=== PATIENT | male | born 1955 | race Caucasian/White ===

== ENCOUNTER 2019-03-01 11:09 | Emergency (ER) | payer SELFPAY | END 2019-03-01 13:15 | disposition home or self-care (01) | LOC: ERS 11:09 | DX: R53.1 Weakness (principal); I11.0 Hypertensive heart disease with heart failure; I50.9 Heart failure, unspecified; E56.9 Vitamin deficiency, unspecified | CPT/HCPCS: 99281 ==

== ENCOUNTER 2019-03-11 15:00 | Inpatient (IN) | payer SELFPAY ==
--- NOTE | 2019-03-11 15:24 | RAD ---
XR Chest 1 View Portable HISTORY: Cough COMPARISON: 04/01/2011 FINDINGS: The heart size is enlarged. The lungs are well expanded without focal areas of consolidatio n, chepe pulmonary edema pneumothorax or pleural effusions. IMPRESSION: No radiographic evidence of acute cardiopulmonary process.
[2019-03-11 15:36] LABS: Hemoglobin 18.3 g/dL (14.0-18.0); Mean Corpuscular HGB CONC 32.3 g/dL (32.0-36.0); Mean Corpuscular Hemoglobin 31.6 pg (27.0-31.0); Mean Corpuscular Volume 97.8 fL (78.0-98.0); Mean Platelet Volume 9.4 fL (7.4-10.4); Platelet Count 130 thou/uL (130-400); RBC Distribution Width 14.4 % (11.5-14.5); Red Blood Cell (RBC) Count 5.81 mill/uL (4.70-6.10); White Blood Cell (WBC) Count 7.7 thou/uL (4.8-10.8)
[2019-03-11 15:53] LABS: Band 6 % (5-11); Large Platelets SLIGHT; Lymphocytes 17 % (21-51); MDiff Complete? YES; Monocytes 4 % (0-10); Neutrophil 72 % (42-75); Platelet Morphology Comment Appears Adequate; RBC Morphology Normal; Reactive Lymphocytes 1 % (0-10)
[2019-03-11 15:55] LABS: ALT (SGPT) 19 U/L (8-55); AST (SGOT) 32 U/L (5-34); Albumin 2.8 g/dL (3.4-4.8); Alkaline Phosphatase 72 U/L (40-110); Anion Gap 14 mmol/L (10-20); BUN (Urea Nitrogen) 24 mg/dL (8.4-25.7); Bilirubin, Total 2.3 mg/dL (0.2-1.2); Calc. Creatinine Clearance 0 mL/min (70-130); Calcium 8.2 mg/dL (7.8-10.44); Carbon Dioxide 29 mmol/L (23-31); Chloride 103 mmol/L (98-107); Estimated GFR-MDRD 82; Globulin 3.1 g/dL (2.4-3.5); Glucose 111 mg/dL (80-115); Potassium 3.8 mmol/L (3.5-5.1); Protein, Total 5.9 g/dL (5.8-8.1); Sodium 142 mmol/L (136-145)
[2019-03-11] MEDS ORDERED: Furosemide 40 MG/4 ML VIAL ONE (16:06)
[2019-03-11] MEDS ORDERED: hydrALAZINE 20 MG/ML VIAL SLOW IVP PRN (17:54)
[2019-03-11] MEDS: Lisinopril 20 MG TAB PO SCH (20:59)
[2019-03-11] MEDS: Metoprolol Tartrate 100 MG TAB PO SCH (20:59)
[2019-03-11] MEDS: Apixaban 5 MG TAB PO SCH (20:59)
[2019-03-11] MEDS: Furosemide 40 MG/4 ML VIAL IVP SCH (21:00)
[2019-03-11 22:42] LABS: Troponin I 0.024 ng/mL (< 0.028)
--- NOTE | 2019-03-12 00:05 | HP ---
REASON FOR ADMISSION: Shortness of breath, swelling of lower extremities. HISTORY OF PRESENT ILLNESS: This is a 63-year-old male patient, presenting to the emergency room for increased swelling of his bilateral lower extremities. History going back to weeks before his presentation, he has been noticing worsening of his chronic lower extremity swelling that has started in August and the swelling was up to his knees, then progressed to his groin and when he goes to work and stands a lot on his feet, his scrotum becomes very swollen and for the past couple of weeks, he has been coughing and getting more swelling extending to his abdominal area and getting very short of breath with ambulation, unable to lay flat on his back. Yesterday, he had an episode of diarrhea which made his weakness and fatigue worse. His last bowel movement was this morning. The patient's last admission to the hospital was in 2011 for congestive heart failure. As per him, his ejection fraction was 20%. Since then, he follows with his primary care physician and takes medication for his high blood pressure. PAST MEDICAL HISTORY: 1. High blood pressure. 2. Atrial fibrillation. The patient is not on any anticoagulation except for full-dose aspirin. 3. Congestive heart failure, as per patient, EF 20%. 4. Coronary artery disease, but no stents and no history of NM. FAMILY HISTORY: Borderline diabetes. SOCIAL HISTORY: He does not smoke. Does not drink alcohol. REVIEW OF SYSTEMS: All systems reviewed except the above-mentioned, found to be negative. PHYSICAL EXAMINATION: GENERAL: Awake, alert, oriented, does not appear in distress. VITAL SIGNS: His blood pressure is 155/93, heart rate 70, afebrile, pulse ox above 90%. HEENT: Head is nontraumatic, normocephalic. Pupils equal, reactive. Extraocular movements are intact. Nonicteric sclerae. Well injected conjunctivae. Oral mucosa normal. Nasal mucosa normal. NECK: Supple. No adenopathy. No murmur. Thyroid palpable. Trachea is midline. No supraclavicular adenopathy. CARDIAC: S1 and S2, irregular. No murmurs. No gallops. No friction rubs noted. No displacement of PMI. LUNGS: Fine inspiratory crackles bilaterally. ABDOMEN: Bowel sounds are positive. Nontender abdomen. EXTREMITIES: He does have 2+ pitting edema in bilateral lower extremities. Slight edema of his scrotum area. NEUROLOGICAL: Cranial nerves 2 through 12 within normal limit. Normal motor function. Normal sensory function. Normal reflexes. LABORATORY DATA: Blood work shows WBC 7.7, hemoglobin 18.3, platelets of 130. Sodium 142, potassium 3.8, BUN 24, creatinine 0.93. Chest x-ray shows no radiographic evidence of acute cardiopulmonary process. EKG as per my read shows controlled rate, atrial fibrillation. ASSESSMENT AND PLAN: This is a 63-year-old male patient presenting with increased swelling of his bilateral lower extremities, extending to his abdominal area, also shortness of breath, also coughing compatible with anasarca. He does have history of congestive heart failure with an EF of 20%. 1. Cardiac. The patient to be admitted to telemetry and would be on aggressive diuresis with IV Lasix. He is on oral Lasix at home, we will convert it to IV, we will double the dose. He does have history of atrial fibrillation and he is in atrial fibrillation, but he is not on any anticoagulation. We will start him on Eliquis 5 mg b.i.d., we will consult Cardiology, we will do an echocardiogram, we will continue his metoprolol and lisinopril for better blood pressure control; but on the other hand, I will decrease his full dose aspirin to baby aspirin since he will be on Eliquis to prevent increased risk of bleed. We will also have him on hydralazine as needed for high blood pressure. 2. For deep vein thrombosis prophylaxis, he will be on Eliquis. Job ID: [id number]
[2019-03-12 04:53] LABS: #Basophils 0.1 thou/uL (0.0-0.2); #Lymphocytes 2.3 thou/uL (1.20-3.40); #Monocytes 0.5 thou/uL (0.11-0.59); #Neutrophils 3.5 thou/uL (1.40-6.50); %Basophils 1.4 % (0.0-1.0); %Eosinophils 0.6 % (0.0-10.0); %Lymphocytes 35.5 % (21.0-51.0); %Monocytes 8.3 % (0.0-10.0); %Neutrophils 54.1 % (42.0-75.0); Hemoglobin 17.1 g/dL (14.0-18.0); Mean Corpuscular HGB CONC 32.5 g/dL (32.0-36.0); Mean Corpuscular Hemoglobin 31.8 pg (27.0-31.0); Mean Platelet Volume 9.1 fL (7.4-10.4); Platelet Count 123 thou/uL (130-400); RBC Distribution Width 14.2 % (11.5-14.5); Red Blood Cell (RBC) Count 5.39 mill/uL (4.70-6.10); White Blood Cell (WBC) Count 6.4 thou/uL (4.8-10.8)
[2019-03-12] MEDS: Furosemide 40 MG/4 ML VIAL IVP SCH ×2 (05:09→16:09)
[2019-03-12 05:14] VITALS: BMI 32.6
[2019-03-12 05:45] LABS: Anion Gap 11 mmol/L (10-20); BUN (Urea Nitrogen) 21 mg/dL (8.4-25.7); Calc. Creatinine Clearance 143 mL/min (70-130); Calcium 8.1 mg/dL (7.8-10.44); Carbon Dioxide 34 mmol/L (23-31); Chloride 100 mmol/L (98-107); Estimated GFR-MDRD Greater than 90; Glucose 87 mg/dL (80-115); Potassium 3.4 mmol/L (3.5-5.1); Sodium 142 mmol/L (136-145)
[2019-03-12] MEDS: Lisinopril 20 MG TAB PO SCH (08:47)
[2019-03-12] MEDS: Metoprolol Tartrate 100 MG TAB PO SCH (08:47)
[2019-03-12] MEDS: Aspirin Chewable 81 MG TAB PO SCH (08:47)
[2019-03-12] MEDS: Apixaban 5 MG TAB PO SCH (08:48)
[2019-03-12] MEDS ORDERED: Aspirin 325 MG TAB PO SCH (09:00)
[2019-03-12 10:14] LABS: Hemoglobin 18.2 g/dL (14.0-18.0); Platelet Count 135 thou/uL (130-400)
--- NOTE | 2019-03-12 10:27 | PDOC.HOSPP ---
- Subjective Encounter Date: 03/12/19 Encounter Time: 10:23 Subjective: Doing a little better. Reports a hx of initial diagnosis of cardiomyopathy in 2012 here. Had an echo and stress test. Those results are not avail to me on this system right now. He does not recal having a cath at that time and does not recall anyone telling him why he had a cardiomyopathy. He did drink and smoke heavily but quit in 1985. He was told in 2011 that he had afib as well. He was never on anticoagulation. He has had a cough that has been productive of mostly clear, frothy sputum. He has been taking mucinex DM and has on occasion has some discolored sputum. He was prompted to present here because of the discomfort associated with scrotal edema and the new symptom of diarrhea. - Objective Vital Signs & Weight: Vital Signs (12 hours) Temp Pulse Resp BP BP Pulse Ox 03/12/19 08:42 97.5 F L 85 16 160/94 H 94 L 03/12/19 03:31 97.8 F 72 18 144/84 H 93 L 03/12/19 00:00 95 138/67 Weight Weight 240 lb 11.2 oz I&O: 03/11/19 03/12/19 03/13/19 06:59 06:59 06:59 Intake Total 340 Output Total 1750 Balance -1410 Result Diagrams: 03/12/19 09:57 03/12/19 04:07 Hospitalist ROS - Medication Medications: Active Medications Generic Name Dose Route Start Last Admin Trade Name Freq PRN Reason Stop Dose Admin Aspirin 81 mg 03/12/19 09:00 03/12/19 08:47 Aspirin Chewable PO 81 mg DAILY AISHA Administration Furosemide 40 mg 03/11/19 18:00 03/12/19 05:09 Lasix IVP 40 mg Q12H AISHA Administration Lisinopril 20 mg 03/11/19 21:00 03/12/19 08:47 Zestril PO 20 mg BID AISHA Administration Metoprolol Tartrate 100 mg 03/11/19 21:00 03/12/19 08:47 Lopressor PO 100 mg BID AISHA Administration Sodium Chloride 10 ml 03/11/19 21:00 03/12/19 08:48 Flush - Normal Saline IVF 10 ml Q12HR AISHA Administration - Exam General Appearance: NAD, awake alert General - other findings: Obese. Obviously very edematous in general. Neck: supple, symmetric, no JVD, no thyromegaly, no lymphadenopathy, no carotid bruit Heart: no murmur, no gallops, no rubs, irregular Respiratory: no rales (Scattered bilaterally.), no ronchi, normal chest expansion, no tachypnea Gastrointestinal: soft, non-tender, non-distended, normal bowel sounds, no palpable masses, no hepatomegaly, no splenomegaly, no bruit Gastrointestinal - other findings: Pitting edema of the abdomen. Extremities: 2+ LE edema Skin: normal turgor Neurological: no focal deficits Musculoskeletal: normal tone, normal strength, no muscle wasting Psychiatric: normal affect, normal behavior, A&O x 3 Hosp A/P (1) Cardiac volume overload Code(s): E87.79 - OTHER FLUID OVERLOAD Status: Acute (2) Acute on chronic systolic and diastolic heart failure, NYHA class 3 Code(s): I50.43 - ACUTE ON CHRONIC COMBINED SYSTOLIC AND DIASTOLIC HRT FAIL Status: Acute (3) Cardiomyopathy Code(s): I42.9 - CARDIOMYOPATHY, UNSPECIFIED Status: Chronic (4) Bronchitis Code(s): J40 - BRONCHITIS, NOT SPECIFIED ACUTE OR CHRONIC Status: Acute (5) Diarrhea Code(s): R19.7 - DIARRHEA, UNSPECIFIED Status: Acute (6) Obesity (BMI 30.0-34.9) Code(s): E66.9 - OBESITY, UNSPECIFIED Status: Chronic (7) Elevated bilirubin Code(s): R17 - UNSPECIFIED JAUNDICE Status: Acute (8) Atrial fibrillation Code(s): I48.91 - UNSPECIFIED ATRIAL FIBRILLATION Status: Chronic (9) HTN (hypertension) Code(s): I10 - ESSENTIAL (PRIMARY) HYPERTENSION Status: Chronic (10) Polycythemia Code(s): D75.1 - SECONDARY POLYCYTHEMIA Status: Acute (11) Hypokalemia Code(s): E87.6 - HYPOKALEMIA Status: Acute - Plan Volume Overload: Secondary to CHF. Continue diuresis with IV lasix. Seems to be working well now. CHF: Continue diuresis. Reports a hx of EF of 20% from echo from 2011. Repeat echo pending. Cardiology consult pending. Cardiomyopathy: Unclear etiology. Hopefully, the watermelon inspector will be able to pull records and see if he had a cath in 2012. If not, he will likely need one to rule out ischemic etiology. No other readily identifiable etiology. Continue afterload reduction and beta jessee. Bronchitis: Start po ceftin in light of the decompensated CHF. Diarrhea: May have been related to the OTC Guaifenesin DM. Could possibly be related to bowel edema. Does not appear to be an ongoing problem for him. Adding Florastor. Elevated Bili: Likely passive liver congestion from CHF. Continue to monitor. Atrial fibrillation: Rate well controlled. Sounds like it is chronic and was known to be present in 2012. Was started on Eliquis. However, I will hold stop that for now in anticipation of possible cath. Start Lovenox. Continue beta jessee. HTN: Continue Lisinopril, metoprolol. Polycythemia: May be secondary to chronic chf. Hypokalemia: Oral repletion with additional dose later in light of ongoing diuresis. DVT proph: Lovenox given at therapeutic dose for afib. PUD proph: H2 antagonist.
[2019-03-12] MEDS ORDERED: Potassium Chloride 20 MEQ TAB PO SCH ×2 (10:30→16:30)
[2019-03-12] MEDS ORDERED: Spironolactone 25 MG TAB PO SCH (15:30)
[2019-03-12] MEDS ORDERED: Metolazone 5 MG TAB PO SCH (15:30)
[2019-03-12] MEDS: Carvedilol 25 MG TAB PO SCH (16:08)
[2019-03-12] MEDS: Spironolactone 25 MG TAB PO SCH (16:10)
--- NOTE | 2019-03-12 17:15 | CON ---
DATE OF CONSULTATION: HISTORY OF PRESENT ILLNESS: The patient is a 63-year-old gentleman, who presents for evaluation of dyspnea and lower extremity swelling. The patient has a history of a cardiomyopathy. He was seen in 2011 with a severe cardiomyopathy. The patient declined to undergo an invasive evaluation. The patient was placed on medical therapy. He has been followed by his primary physician. The patient presents with increasing lower extremity swelling. He reports being markedly dyspneic. The patient has PND and orthopnea. The patient denies having any chest discomfort. PAST MEDICAL HISTORY: 1. Cardiomyopathy. 2. Atrial fibrillation. 3. Hypertension. PAST SURGICAL HISTORY: None. SOCIAL HISTORY: He is a former smoker. MEDICATIONS: 1. Aspirin 325 daily. 2. Lasix 40 daily. 3. Lisinopril 25 b.i.d. 4. Metoprolol 100 XL b.i.d. FAMILY HISTORY: No strong family history of heart disease. ALLERGIES: NO KNOWN DRUG ALLERGIES. REVIEW OF SYSTEMS: Remarkable only for nasal congestion. PHYSICAL EXAMINATION: GENERAL: Obese gentleman, in no acute distress. VITAL SIGNS: Blood pressure 134/84. NECK: Full. LUNGS: Few crackles in both bases. HEART: Regular rate and rhythm. Normal S1 and S2. 1/6 systolic murmur. ABDOMEN: Distended. EXTREMITIES: Showed severe bilateral edema. LABORATORY RESULTS: Sodium 142, potassium 3.4, chloride 100, bicarbonate 34, BUN 21, and creatinine 0.83. Troponin was 0.024. White blood cell count 6.4, hemoglobin 17.1, hematocrit 52.8, and his platelets are 123. IMAGING DATA: EKG revealed atrial fibrillation with a left anterior fascicular block. IMPRESSION: 1. Congestive heart failure, acute on chronic, systolic. 2. Cardiomyopathy. 3. Severe mitral regurgitation. 4. Hypertension. 5. Obesity. 6. Atrial fibrillation. This gentleman presents with severe congestive heart failure. The patient will be diuresed with IV Lasix. He will also be started on spironolactone. We would highly recommend the patient be placed on Entresto instead of lisinopril. We will discontinue Lisinopril. I recommend the patient undergo a cardiac catheterization, which the patient is now agreeable to proceed. We will also switch to Coreg. The patient's prognosis is guarded. We will follow this patient with you through his hospitalization. Job ID: [id number] [facility]
[2019-03-12] MEDS: Cefuroxime Axetil 250 MG TAB PO SCH (20:59)
[2019-03-12] MEDS: Enoxaparin Sodium 100 MG/ML SYRINGE SC SCH (20:59)
[2019-03-12] MEDS ORDERED: FLU VACC QS2019-20(6MOS UP)/PF 60 MCG/0.5 ML SYRINGE IM ONE (21:00)
[2019-03-12] MEDS ORDERED: Prevnar 13-Val Conj/PF 0.5 ML SYRINGE IM ONE (21:00)
[2019-03-12] MEDS: Saccharomyces boulardii 250 MG CAP PO SCH (21:01)
[2019-03-12] MEDS: Famotidine 20 MG TAB PO SCH (21:01)
[2019-03-13] MEDS: Furosemide 40 MG/4 ML VIAL IVP SCH ×2 (06:02→16:32)
[2019-03-13] MEDS: Carvedilol 25 MG TAB PO SCH ×2 (08:54→16:32)
[2019-03-13] MEDS: Enoxaparin Sodium 100 MG/ML SYRINGE SC SCH ×2 (08:55→20:22)
[2019-03-13] MEDS: Saccharomyces boulardii 250 MG CAP PO SCH ×2 (08:55→20:22)
[2019-03-13] MEDS: Famotidine 20 MG TAB PO SCH ×2 (08:55→20:22)
[2019-03-13] MEDS: Spironolactone 25 MG TAB PO SCH (08:55)
[2019-03-13] MEDS: Aspirin Chewable 81 MG TAB PO SCH (08:55)
[2019-03-13] MEDS: Cefuroxime Axetil 250 MG TAB PO SCH ×2 (08:55→20:22)
[2019-03-13 09:46] LABS: Anion Gap 16 mmol/L (10-20); Carbon Dioxide 40 mmol/L (23-31); Chloride 90 mmol/L (98-107); Potassium 4.2 mmol/L (3.5-5.1); Sodium 142 mmol/L (136-145)
[2019-03-13 09:50] LABS: BUN (Urea Nitrogen) 17 mg/dL (8.4-25.7); Calc. Creatinine Clearance 111 mL/min (70-130); Calcium 9.4 mg/dL (7.8-10.44); Estimated GFR-MDRD 74; Glucose 121 mg/dL (80-115)
[2019-03-13] MEDS ORDERED: Diazepam 5 MG TAB PO SCH (14:15)
[2019-03-13] MEDS ORDERED: Communication Order-Pharmacy FS SCH (14:15)
--- NOTE | 2019-03-13 15:21 | PDOC.HOSPP ---
- Subjective Subjective: Feeling some better. He is voiding well with the lasix. - Objective Vital Signs & Weight: Vital Signs (12 hours) Temp Pulse Resp BP Pulse Ox 03/13/19 11:43 97.7 F 79 18 109/67 94 L 03/13/19 07:52 97.3 F L 85 18 146/89 H 93 L 03/13/19 07:45 95 03/13/19 05:00 97.5 F L 80 20 131/79 92 L Weight Weight 229 lb 9.6 oz I&O: 03/12/19 03/13/19 03/14/19 06:59 06:59 06:59 Intake Total 340 1200 Output Total 0943 2610 Balance -7206 -8945 Result Diagrams: 03/12/19 09:57 03/13/19 09:07 Hospitalist ROS - Medication Medications: Active Medications Generic Name Dose Route Start Last Admin Trade Name Freq PRN Reason Stop Dose Admin Aspirin 81 mg 03/12/19 09:00 03/13/19 08:55 Aspirin Chewable PO 81 mg DAILY AISHA Administration Carvedilol 25 mg 03/12/19 17:00 03/13/19 08:54 Coreg PO 25 mg BID-WM AISHA Administration Cefuroxime Axetil 250 mg 03/12/19 21:00 03/13/19 08:55 Ceftin PO 250 mg Q12HR AISHA Administration Enoxaparin Sodium 100 mg 03/12/19 21:00 03/13/19 08:55 Lovenox SC 03/13/19 23:59 100 mg 0900,2100 AISHA Administration Famotidine 20 mg 03/12/19 21:00 03/13/19 08:55 Pepcid PO 20 mg BID AISHA Administration Furosemide 80 mg 03/12/19 16:00 03/13/19 06:02 Lasix IVP 80 mg 0400,1600 AISHA Administration Saccharomyces Boulardii 250 mg 03/12/19 21:00 03/13/19 08:55 Florastor PO 250 mg BID AISHA Administration Sodium Chloride 10 ml 03/11/19 21:00 03/12/19 21:01 Flush - Normal Saline IVF 10 ml Q12HR AISHA Administration Sodium Chloride 10 ml 03/11/19 18:16 03/13/19 06:02 Flush - Normal Saline IVF 10 ml PRN PRN Administration Saline Flush Spironolactone 25 mg 03/12/19 16:00 03/13/19 08:55 Aldactone PO 25 mg QAM-[facility] Administration - Exam General Appearance: NAD, awake alert Heart: RRR, no murmur, no gallops, no rubs, normal peripheral pulses Respiratory: CTAB, no wheezes, no rales, no ronchi, normal chest expansion, no tachypnea, normal percussion Gastrointestinal: soft, non-tender, non-distended, normal bowel sounds, no palpable masses, no hepatomegaly, no splenomegaly, no bruit Extremities: 2+ LE edema Skin: normal turgor Neurological: no focal deficits Musculoskeletal: normal tone Psychiatric: normal affect, normal behavior, A&O x 3 Hosp A/P (1) Cardiac volume overload Code(s): E87.79 - OTHER FLUID OVERLOAD Status: Acute (2) Acute on chronic systolic and diastolic heart failure, NYHA class 3 Code(s): I50.43 - ACUTE ON CHRONIC COMBINED SYSTOLIC AND DIASTOLIC HRT FAIL Status: Acute (3) Cardiomyopathy Code(s): I42.9 - CARDIOMYOPATHY, UNSPECIFIED Status: Chronic (4) Bronchitis Code(s): J40 - BRONCHITIS, NOT SPECIFIED ACUTE OR CHRONIC Status: Acute (5) Diarrhea Code(s): R19.7 - DIARRHEA, UNSPECIFIED Status: Acute (6) Obesity (BMI 30.0-34.9) Code(s): E66.9 - OBESITY, UNSPECIFIED Status: Chronic (7) Elevated bilirubin Code(s): R17 - UNSPECIFIED JAUNDICE Status: Acute (8) Atrial fibrillation Code(s): I48.91 - UNSPECIFIED ATRIAL FIBRILLATION Status: Chronic (9) HTN (hypertension) Code(s): I10 - ESSENTIAL (PRIMARY) HYPERTENSION Status: Chronic (10) Polycythemia Code(s): D75.1 - SECONDARY POLYCYTHEMIA Status: Acute (11) Hypokalemia Code(s): E87.6 - HYPOKALEMIA Status: Acute - Plan Volume Overload: Secondary to CHF. Continue diuresis with IV lasix. Seems to be working well now. Aldactone added by Cards. CHF: Continue diuresis. Working well. Reports a hx of EF of 20% from echo from 2011. Repeat echo pending. Cardiology following. Stopped ACEI to start Entresto after washout period. Cardiomyopathy: Unclear etiology. apparently did not have cath in 2012. Willing to do that this time. No other readily identifiable etiology. Continue afterload reduction and beta jessee. Bronchitis: Start po ceftin in light of the decompensated CHF. Diarrhea: May have been related to the OTC Guaifenesin DM. Could possibly be related to bowel edema. Does not appear to be an ongoing problem for him. Adding Florastor. Elevated Bili: Likely passive liver congestion from CHF. Continue to monitor. Atrial fibrillation: Rate well controlled. Sounds like it is chronic and was known to be present in 2012. Was started on Eliquis. However, I will hold stop that for now in anticipation of possible cath. Start Lovenox. Continue beta jessee. HTN: Continue metoprolol. ACEI held for washout period to start Entresto. Polycythemia: May be secondary to chronic chf. Hypokalemia: Oral repletion with additional dose later in light of ongoing diuresis. DVT proph: Lovenox given at therapeutic dose for afib. PUD proph: H2 antagonist.
[2019-03-14 04:51] LABS: #Eosinphils 0.1 thou/uL (0.0-0.7); #Monocytes 0.3 thou/uL (0.11-0.59); #Neutrophils 2.8 thou/uL (1.40-6.50); %Basophils 0.5 % (0.0-1.0); %Eosinophils 1.2 % (0.0-10.0); %Lymphocytes 38.7 % (21.0-51.0); %Monocytes 5.5 % (0.0-10.0); %Neutrophils 54.1 % (42.0-75.0); Hemoglobin 17.5 g/dL (14.0-18.0); Mean Corpuscular HGB CONC 32.7 g/dL (32.0-36.0); Mean Corpuscular Hemoglobin 31.3 pg (27.0-31.0); Mean Corpuscular Volume 95.6 fL (78.0-98.0); Mean Platelet Volume 8.7 fL (7.4-10.4); Platelet Count 158 thou/uL (130-400); RBC Distribution Width 13.8 % (11.5-14.5); Red Blood Cell (RBC) Count 5.59 mill/uL (4.70-6.10); White Blood Cell (WBC) Count 5.3 thou/uL (4.8-10.8)
[2019-03-14 05:11] LABS: BUN (Urea Nitrogen) 21 mg/dL (8.4-25.7); Calc. Creatinine Clearance 104 mL/min (70-130); Calcium 9.2 mg/dL (7.8-10.44); Estimated GFR-MDRD 69; Glucose 106 mg/dL (80-115)
[2019-03-14 05:20] LABS: Anion Gap 19 mmol/L (10-20); Carbon Dioxide 33 mmol/L (23-31); Chloride 87 mmol/L (98-107); Potassium 3.7 mmol/L (3.5-5.1); Sodium 135 mmol/L (136-145)
[2019-03-14] MEDS: Famotidine 20 MG TAB PO SCH ×2 (08:03→21:04)
[2019-03-14] MEDS: Saccharomyces boulardii 250 MG CAP PO SCH ×2 (08:03→21:04)
[2019-03-14] MEDS: Cefuroxime Axetil 250 MG TAB PO SCH ×2 (08:03→21:04)
[2019-03-14] MEDS: Carvedilol 25 MG TAB PO SCH ×2 (08:04→18:13)
[2019-03-14] MEDS: Spironolactone 25 MG TAB PO SCH (08:04)
[2019-03-14] MEDS: Aspirin Chewable 81 MG TAB PO SCH (08:04)
[2019-03-14] MEDS ORDERED: Iopamidol 370 76% 100 ML VIAL ONE (09:04)
[2019-03-14] MEDS ORDERED: Heparin (Artline) 1,000 ML ONE (09:36)
[2019-03-14] MEDS ORDERED: Nitroglycerin 0.4 MG TAB (25 Tab Bottle) SL PRN (10:42)
[2019-03-14] MEDS ORDERED: Sodium Chloride 0.9% 200 ML IV PRN (10:42)
[2019-03-14] MEDS ORDERED: Acetaminophen/Codeine 30-300mg Tablet PO PRN ×2 (10:42)
--- NOTE | 2019-03-14 15:32 | PDOC.HOSPP ---
- Subjective Subjective: Doing well overall. He tolerated the cath well. Knows the results. - Objective Vital Signs & Weight: Vital Signs (12 hours) Temp Pulse Resp BP Pulse Ox 03/14/19 12:00 97.7 F 88 16 125/76 87 L 03/14/19 11:05 97.8 F 101 H 16 125/85 94 L 03/14/19 08:00 97.2 F L 88 18 119/72 93 L 03/14/19 07:43 95 03/14/19 04:30 98.1 F 75 22 H 122/76 95 Weight Weight 219 lb 8 oz I&O: 03/13/19 03/14/19 03/15/19 06:59 06:59 06:59 Intake Total 1200 1600 Output Total 7215 5987 Balance -0721 -6454 Result Diagrams: 03/14/19 04:34 03/14/19 04:34 Hospitalist ROS - Medication Medications: Active Medications Generic Name Dose Route Start Last Admin Trade Name Freq PRN Reason Stop Dose Admin Aspirin 81 mg 03/12/19 09:00 03/14/19 08:04 Aspirin Chewable PO 81 mg DAILY AISHA Administration Carvedilol 25 mg 03/12/19 17:00 03/14/19 08:04 Coreg PO 25 mg BID-WM AISHA Administration Cefuroxime Axetil 250 mg 03/12/19 21:00 03/14/19 08:03 Ceftin PO 250 mg Q12HR AISHA Administration Famotidine 20 mg 03/12/19 21:00 03/14/19 08:03 Pepcid PO 20 mg BID AISHA Administration Furosemide 80 mg 03/12/19 16:00 03/13/19 16:32 Lasix IVP 80 mg 0400,1600 AISHA Administration Saccharomyces Boulardii 250 mg 03/12/19 21:00 03/14/19 08:03 Florastor PO 250 mg BID AISHA Administration Sodium Chloride 10 ml 03/11/19 21:00 03/14/19 08:04 Flush - Normal Saline IVF 10 ml Q12HR AISHA Administration Sodium Chloride 10 ml 03/11/19 18:16 03/13/19 06:02 Flush - Normal Saline IVF 10 ml PRN PRN Administration Saline Flush Spironolactone 25 mg 03/12/19 16:00 03/14/19 08:04 Aldactone PO 25 mg QAM-WM AISHA Administration - Exam General Appearance: NAD, awake alert Neck: supple, symmetric, no JVD, no thyromegaly, no lymphadenopathy, no carotid bruit Heart: RRR, no murmur, no gallops, no rubs, normal peripheral pulses Respiratory: CTAB, no wheezes, no rales, no ronchi, normal chest expansion, no tachypnea, normal percussion Gastrointestinal: soft, non-tender, non-distended, normal bowel sounds, no palpable masses, no hepatomegaly, no splenomegaly, no bruit Extremities: 1+ LE edema Neurological: no focal deficits Musculoskeletal: normal tone Psychiatric: normal affect, normal behavior, A&O x 3 Hosp A/P (1) Cardiac volume overload Code(s): E87.79 - OTHER FLUID OVERLOAD Status: Acute (2) Acute on chronic systolic and diastolic heart failure, NYHA class 3 Code(s): I50.43 - ACUTE ON CHRONIC COMBINED SYSTOLIC AND DIASTOLIC HRT FAIL Status: Acute (3) Cardiomyopathy Code(s): I42.9 - CARDIOMYOPATHY, UNSPECIFIED Status: Chronic (4) Bronchitis Code(s): J40 - BRONCHITIS, NOT SPECIFIED ACUTE OR CHRONIC Status: Acute (5) Diarrhea Code(s): R19.7 - DIARRHEA, UNSPECIFIED Status: Acute (6) Obesity (BMI 30.0-34.9) Code(s): E66.9 - OBESITY, UNSPECIFIED Status: Chronic (7) Elevated bilirubin Code(s): R17 - UNSPECIFIED JAUNDICE Status: Acute (8) Atrial fibrillation Code(s): I48.91 - UNSPECIFIED ATRIAL FIBRILLATION Status: Chronic (9) HTN (hypertension) Code(s): I10 - ESSENTIAL (PRIMARY) HYPERTENSION Status: Chronic (10) Polycythemia Code(s): D75.1 - SECONDARY POLYCYTHEMIA Status: Acute (11) Hypokalemia Code(s): E87.6 - HYPOKALEMIA Status: Acute - Plan Volume Overload: Secondary to CHF. Continue diuresis with IV lasix. Seems to be working well now. Aldactone added by Cards. CHF: Continue diuresis. Working well. Reports a hx of EF of 20% from echo from 2011. Repeat echo pending. Cardiology following. Stopped ACEI to start Entresto after washout period. Cardiomyopathy: Unclear etiology. apparently did not have cath in 2012. Willing to do that this time. No other readily identifiable etiology. Continue afterload reduction and beta jessee. Cath negative for significant ischemic disease. Medical management recommended. Bronchitis: Start po ceftin in light of the decompensated CHF. Continues to have a little cough. Diarrhea: May have been related to the OTC Guaifenesin DM. Could possibly be related to bowel edema. Does not appear to be an ongoing problem for him. Adding Florastor. Improving. Elevated Bili: Likely passive liver congestion from CHF. Continue to monitor. Atrial fibrillation: Rate well controlled. Sounds like it is chronic and was known to be present in 2012. Was started on Eliquis. However, I will hold stop that for now in anticipation of possible cath. Start Lovenox. Continue beta jessee. May be able to transition to NOAC. HTN: Continue metoprolol. ACEI held for washout period to start Entresto. Polycythemia: May be secondary to chronic chf. Hypokalemia: Oral repletion with additional dose later in light of ongoing diuresis. DVT proph: Lovenox given at therapeutic dose for afib. PUD proph: H2 antagonist.
[2019-03-14] MEDS: Furosemide 40 MG/4 ML VIAL IVP SCH (18:13)
[2019-03-15] MEDS: Furosemide 40 MG/4 ML VIAL IVP SCH ×2 (02:38→04:23)
--- NOTE | 2019-03-15 03:10 | CON ---
DATE OF CONSULTATION: 03/14/2019 HISTORY OF PRESENT ILLNESS: I am seeing Mr. 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 His problems are: 1. Acute on chronic systolic congestive heart failure with nonischemic cardiomyopathy. a. Reduced LVEF on 2D echocardiogram is 15%-20% with moderate RV enlargement, mild right atrial enlargement, severe mitral regurgitation, mild AI and TR, large and heavy size. b. Left heart catheterization on 03/14/2019 demonstrates nonocclusive mild coronary artery disease only, LVEF reduced in 15%. 2. Nonsustained wide-complex tachycardia, likely ventricular tachycardia. 3. Hypertension. 4. Chronic atrial fibrillation. ALLERGIES: NONE NOTED. MEDICATIONS: At home included, 1. Vitamin D3. 2. Vitamin C. 3. Potassium gluconate. 4. Aspirin. 5. Mucinex. 6. Zinc. 7. Metoprolol tartrate 100 mg twice a day. 8. Lisinopril p.o. twice a day. 9. Furosemide. SUBJECTIVE: Mr. Cleveland is here with heart failure exacerbation. He was evaluated by Dr. Ng with echocardiogram and left heart catheterization with the above findings. He is now feeling better with diuresis. Blood pressure is still borderline. He does not pass out. He does not feel more palpitations. No fever, chills, or cough. Rest of 12-point system otherwise unremarkable. PAST MEDICAL HISTORY: As above including hypertension, chronic atrial fibrillation, not previous anticoagulation. CHF, he does mentioned reduced LVEF back in 2011, but has not been seen by mid level net developer in the interim. SOCIAL HISTORY: The patient denies smoking, EtOH, or drug abuse. FAMILY HISTORY: Significant for borderline diabetes. OBJECTIVE DATA: VITAL SIGNS: Blood pressure is 108/72, heart rate 99-130, respirations 16, and temperature 97.8 degrees Fahrenheit. GENERAL: Alert and oriented man, in no apparent distress. NECK: Supple. Jugular veins not distended. CHEST: Coarse without crackles. HEART: Sounds are regular to rate and rhythm. No murmur or gallop. ABDOMEN: Benign. Bowel sounds positive. EXTREMITIES: Lower extremities without edema, clubbing, or cyanosis. DATABASE: EKG is reviewed, revealing atrial fibrillation rate of 82 beats per minute, also ST-T changes. Subsequent telemetry strips revealed continued atrial fibrillation with a controlled ventricular rate, nonsustained ventricular tachycardia was noted. LABORATORY DATA: White cell count of 5.3, hemoglobin 17.5, platelet count is 158. Sodium 135, potassium 3.7, BUN is 21, creatinine 1.09. Troponin was 0.02 and 0.024. BNP is 1519 on admission. Chest x-ray was unremarkable. ASSESSMENT AND PLAN: Mr. Cleveland is a 63-year-old man with remote history of cardiomyopathy of which records are not available to me. On the other hand, now admitted with heart failure exacerbation with elevated BNP in the setting of hypertension. He is feeling better now with blood pressure better controlled and also diuresed. He underwent cardiac investigations above by Dr. Ng with findings of severely reduced LVEF and a nonischemic cardiomyopathy. He also had nonsustained ventricular tachycardia. We discussed the risk of future ventricular arrhythmias with him. He understands the potential benefit from prophylactic ICD device. At this point, he is hesitant and he will receive further medical optimization with Dr. Ng and LifeVest is a consideration for him. I am happy to see him back in after 3 months of intensified medical therapy, possibly including Entresto and reconsider him for ICD implant at that time. Thank you again for letting me to participate in the care of this patient. Job ID: [id number]
[2019-03-15 05:06] LABS: Anion Gap 14 mmol/L (10-20); BUN (Urea Nitrogen) 21 mg/dL (8.4-25.7); Calc. Creatinine Clearance 89 mL/min (70-130); Calcium 9.1 mg/dL (7.8-10.44); Carbon Dioxide 37 mmol/L (23-31); Chloride 87 mmol/L (98-107); Estimated GFR-MDRD 61; Glucose 118 mg/dL (80-115); Sodium 134 mmol/L (136-145)
[2019-03-15] MEDS ORDERED: Carvedilol 25 MG TAB PO SCH ×3 (08:45→17:00)
[2019-03-15] MEDS ORDERED: Spironolactone 25 MG TAB PO SCH (09:00)
[2019-03-15] MEDS ORDERED: Carvedilol 6.25 MG TAB PO SCH (09:15)
[2019-03-15] MEDS: Apixaban 5 MG TAB PO SCH ×2 (09:22→19:47)
[2019-03-15] MEDS: Aspirin Chewable 81 MG TAB PO SCH (09:22)
[2019-03-15] MEDS: Cefuroxime Axetil 250 MG TAB PO SCH ×2 (09:22→19:47)
[2019-03-15] MEDS: Famotidine 20 MG TAB PO SCH ×2 (09:23→19:47)
[2019-03-15] MEDS: Furosemide 20 MG TAB PO SCH ×2 (09:23→15:22)
[2019-03-15] MEDS: Saccharomyces boulardii 250 MG CAP PO SCH ×2 (09:23→19:47)
[2019-03-15] MEDS: Spironolactone 25 MG TAB PO SCH (09:29)
[2019-03-15] MEDS: Carvedilol 25 MG TAB PO SCH (09:30)
--- NOTE | 2019-03-15 10:23 | PDOC.HOSPP ---
- Subjective Subjective: Patient reports that he had one episode of dizziness this morning. Breathing well on room air in bed, but had some shortness of breath when walking to the bathroom. Reports that diarrhea has persisted. He had several episodes yesterday. - Objective Vital Signs & Weight: Vital Signs (12 hours) Temp Pulse Resp BP Pulse Ox 03/15/19 07:35 98.1 F 85 20 98/61 97 03/15/19 03:13 98.2 F 84 18 115/66 93 L 03/14/19 23:58 100/57 L Weight Weight 204 lb I&O: 03/14/19 03/15/19 03/16/19 06:59 06:59 06:59 Intake Total 1600 1060 Output Total 0352 5465 Balance -4745 -0577 Result Diagrams: 03/14/19 04:34 03/15/19 04:23 Hospitalist ROS - Medication Medications: Active Medications Generic Name Dose Route Start Last Admin Trade Name Freq PRN Reason Stop Dose Admin Apixaban 5 mg 03/15/19 09:00 03/15/19 09:22 Eliquis PO 5 mg BID IASHA Administration Aspirin 81 mg 03/12/19 09:00 03/15/19 09:22 Aspirin Chewable PO 81 mg DAILY AISHA Administration Cefuroxime Axetil 250 mg 03/12/19 21:00 03/15/19 09:22 Ceftin PO 250 mg Q12HR AISHA Administration Famotidine 20 mg 03/12/19 21:00 03/15/19 09:23 Pepcid PO 20 mg BID AISHA Administration Furosemide 40 mg 03/15/19 09:00 03/15/19 09:23 Lasix PO 40 mg 0900,1400 AISHA Administration Saccharomyces Boulardii 250 mg 03/12/19 21:00 03/15/19 09:23 Florastor PO 250 mg BID AISHA Administration Sacubitril/Valsartan 1 tab 03/14/19 21:00 03/15/19 09:23 Entresto 24 Mg-26 Mg Tablet PO 1 tab BID AISHA Administration Sodium Chloride 10 ml 03/11/19 21:00 03/15/19 09:23 Flush - Normal Saline IVF 10 ml Q12HR AISHA Administration Sodium Chloride 10 ml 03/11/19 18:16 03/13/19 06:02 Flush - Normal Saline IVF 10 ml PRN PRN Administration Saline Flush Spironolactone 50 mg 03/15/19 09:00 03/15/19 09:24 Aldactone PO 03/15/19 11:00 50 mg NOW AISHA Administration - Exam General Appearance: NAD, awake alert ENT: normocephalic atraumatic, no oropharyngeal lesions, moist mucosa Heart: RRR, no murmur, no gallops, no rubs Respiratory: CTAB, no wheezes, no rales, no ronchi, normal chest expansion, no tachypnea Gastrointestinal: soft, non-tender, non-distended Extremities: 1+ LE edema Hosp A/P (1) Cardiac volume overload Code(s): E87.79 - OTHER FLUID OVERLOAD Status: Acute (2) Acute on chronic systolic and diastolic heart failure, NYHA class 3 Code(s): I50.43 - ACUTE ON CHRONIC COMBINED SYSTOLIC AND DIASTOLIC HRT FAIL Status: Acute (3) Cardiomyopathy Code(s): I42.9 - CARDIOMYOPATHY, UNSPECIFIED Status: Chronic (4) Bronchitis Code(s): J40 - BRONCHITIS, NOT SPECIFIED ACUTE OR CHRONIC Status: Acute (5) Diarrhea Code(s): R19.7 - DIARRHEA, UNSPECIFIED Status: Acute (6) Obesity (BMI 30.0-34.9) Code(s): E66.9 - OBESITY, UNSPECIFIED Status: Chronic (7) Elevated bilirubin Code(s): R17 - UNSPECIFIED JAUNDICE Status: Acute (8) Atrial fibrillation Code(s): I48.91 - UNSPECIFIED ATRIAL FIBRILLATION Status: Chronic (9) HTN (hypertension) Code(s): I10 - ESSENTIAL (PRIMARY) HYPERTENSION Status: Chronic (10) Polycythemia Code(s): D75.1 - SECONDARY POLYCYTHEMIA Status: Acute (11) Hypokalemia Code(s): E87.6 - HYPOKALEMIA Status: Acute - Plan Volume Overload: Secondary to CHF. Continue diuresis with IV lasix. Seems to be working well now. Aldactone added by Cards. CHF: Continue diuresis. Working well. Reports a hx of EF of 20% from echo from 2011. Repeat echo pending. Cardiology following. Started on Entresto 03/14. EP consulted. Pt decided to wait on AICD and attempt max medical management for 3 months. Pt declined LifeVest at this time. Will follow with Berenice. Cardiomyopathy: Unclear etiology. apparently did not have cath in 2012. Willing to do that this time. No other readily identifiable etiology. Continue afterload reduction and beta jessee. Cath negative for significant ischemic disease. Medical management recommended. Bronchitis: Start po ceftin in light of the decompensated CHF. Continues to have a little cough when supine. Diarrhea: May have been related to the OTC Guaifenesin DM. Could possibly be related to bowel edema. Continue Florastor. Persistent, will continue to monitor. Elevated Bili: Likely passive liver congestion from CHF. Continue to monitor. Atrial fibrillation: Rate well controlled. Sounds like it is chronic and was known to be present in 2012. On Eliquis. Cath yesterday revealed no significant blockages. Continue beta jessee. HTN: Continue metoprolol. On Entresto. Polycythemia: May be secondary to chronic chf. Hypokalemia: Resolved. DVT proph: Lovenox given at therapeutic dose for afib. PUD proph: H2 antagonist.
[2019-03-15 10:36] LABS: Hemoglobin 18.4 g/dL (14.0-18.0); Platelet Count 173 thou/uL (130-400)
[2019-03-15] MEDS ORDERED: Furosemide 40 MG/4 ML VIAL IVP SCH (14:00)
[2019-03-15] MEDS ORDERED: Sodium Chloride 0.9% 250 ML IV SCH (16:15)
[2019-03-15] MEDS: Carvedilol 6.25 MG TAB PO SCH (17:41)
[2019-03-15] MEDS: Atorvastatin Calcium 40 MG TAB PO SCH (19:47)
[2019-03-16 06:50] LABS: BUN (Urea Nitrogen) 25 mg/dL (8.4-25.7); Calc. Creatinine Clearance 76 mL/min (70-130); Calcium 9.3 mg/dL (7.8-10.44); Estimated GFR-MDRD 56; Glucose 107 mg/dL (80-115)
[2019-03-16 06:59] LABS: Anion Gap 19 mmol/L (10-20); Carbon Dioxide 32 mmol/L (23-31); Chloride 86 mmol/L (98-107); Potassium 3.2 mmol/L (3.5-5.1); Sodium 134 mmol/L (136-145)
[2019-03-16] MEDS ORDERED: Potassium Chloride 20 MEQ TAB PO SCH (08:00)
[2019-03-16] MEDS: Spironolactone 25 MG TAB PO SCH (08:51)
[2019-03-16] MEDS: Carvedilol 6.25 MG TAB PO SCH ×2 (08:51→17:16)
[2019-03-16] MEDS: Cefuroxime Axetil 250 MG TAB PO SCH ×2 (08:52→21:24)
[2019-03-16] MEDS: Famotidine 20 MG TAB PO SCH ×2 (08:52→21:25)
[2019-03-16] MEDS: Saccharomyces boulardii 250 MG CAP PO SCH ×2 (08:52→21:24)
[2019-03-16] MEDS: Furosemide 20 MG TAB PO SCH ×2 (08:57→13:34)
[2019-03-16] MEDS: Apixaban 5 MG TAB PO SCH ×2 (08:57→21:24)
[2019-03-16] MEDS: Aspirin Chewable 81 MG TAB PO SCH (08:57)
[2019-03-16] MEDS: Ondansetron PF 4 MG/2 ML Vial IVP PRN (09:03)
--- NOTE | 2019-03-16 09:39 | PDOC.HOSPP ---
- Subjective Subjective: Pt reports some nausea and dizziness this morning. But otherwise states that he is feeling better. He is eating and not having any difficulty currently. He reports that his diarrhea has resolved. - Objective Vital Signs & Weight: Vital Signs (12 hours) Temp Pulse Resp BP Pulse Ox 03/16/19 08:48 97.8 F 85 17 145/81 H 96 03/16/19 07:29 92 L 03/16/19 03:34 98.8 F 77 18 123/66 92 L 03/15/19 23:42 80 18 113/65 Weight Weight 201 lb I&O: 03/15/19 03/16/19 03/17/19 06:59 06:59 06:59 Intake Total 1060 1630 Output Total 3620 2180 Balance -2560 -550 Result Diagrams: 03/15/19 10:27 03/16/19 06:04 Hospitalist ROS - Medication Medications: Active Medications Generic Name Dose Route Start Last Admin Trade Name Freq PRN Reason Stop Dose Admin Apixaban 5 mg 03/15/19 09:00 03/16/19 08:57 Eliquis PO 5 mg BID AISHA Administration Aspirin 81 mg 03/12/19 09:00 03/16/19 08:57 Aspirin Chewable PO 81 mg DAILY AISHA Administration Atorvastatin Calcium 40 mg 03/15/19 21:00 03/15/19 19:47 Lipitor PO 40 mg HS AISHA Administration Carvedilol 6.25 mg 03/15/19 17:00 03/16/19 08:51 Coreg PO 6.25 mg BID-WM AISHA Administration Cefuroxime Axetil 250 mg 03/12/19 21:00 03/16/19 08:52 Ceftin PO 250 mg Q12HR AISHA Administration Famotidine 20 mg 03/12/19 21:00 03/16/19 08:52 Pepcid PO 20 mg BID AISHA Administration Furosemide 40 mg 03/15/19 09:00 03/16/19 08:57 Lasix PO 40 mg 0900,1400 AISHA Administration Ondansetron HCl 4 mg 03/16/19 08:51 03/16/19 09:03 Zofran IVP 4 mg Q6H PRN Administration Nausea/Vomiting Potassium Chloride 40 meq 03/16/19 08:00 03/16/19 08:51 K-Dur PO 03/16/19 10:00 40 meq NOW AISHA Administration Saccharomyces Boulardii 250 mg 03/12/19 21:00 03/16/19 08:52 Florastor PO 250 mg BID AISHA Administration Sacubitril/Valsartan 1 tab 03/14/19 21:00 03/16/19 08:57 Entresto 24 Mg-26 Mg Tablet PO 1 tab BID AISHA Administration Sodium Chloride 10 ml 03/11/19 21:00 03/16/19 08:58 Flush - Normal Saline IVF 10 ml Q12HR AISHA Administration Sodium Chloride 10 ml 03/11/19 18:16 03/13/19 06:02 Flush - Normal Saline IVF 10 ml PRN PRN Administration Saline Flush Spironolactone 50 mg 03/16/19 08:00 03/16/19 08:51 Aldactone PO 50 mg QAM-WM AISHA Administration - Exam General Appearance: NAD, awake alert Heart: RRR, no murmur, no gallops, no rubs Respiratory: CTAB, no wheezes, no rales, no ronchi, normal chest expansion, no tachypnea Extremities: no edema Skin: tenting Hosp A/P (1) Cardiac volume overload Code(s): E87.79 - OTHER FLUID OVERLOAD Status: Acute (2) Acute on chronic systolic and diastolic heart failure, NYHA class 3 Code(s): I50.43 - ACUTE ON CHRONIC COMBINED SYSTOLIC AND DIASTOLIC HRT FAIL Status: Acute (3) Cardiomyopathy Code(s): I42.9 - CARDIOMYOPATHY, UNSPECIFIED Status: Chronic (4) Bronchitis Code(s): J40 - BRONCHITIS, NOT SPECIFIED ACUTE OR CHRONIC Status: Acute (5) Diarrhea Code(s): R19.7 - DIARRHEA, UNSPECIFIED Status: Acute (6) Obesity (BMI 30.0-34.9) Code(s): E66.9 - OBESITY, UNSPECIFIED Status: Chronic (7) Elevated bilirubin Code(s): R17 - UNSPECIFIED JAUNDICE Status: Acute (8) Atrial fibrillation Code(s): I48.91 - UNSPECIFIED ATRIAL FIBRILLATION Status: Chronic (9) HTN (hypertension) Code(s): I10 - ESSENTIAL (PRIMARY) HYPERTENSION Status: Chronic (10) Polycythemia Code(s): D75.1 - SECONDARY POLYCYTHEMIA Status: Acute (11) Hypokalemia Code(s): E87.6 - HYPOKALEMIA Status: Acute - Plan Volume Overload: Secondary to CHF. Continue diuresis with PO Lasix and spironolactone. Seems to be working well now. CHF: Started spironolactone. Will decrease Lasix to 40 mg PO QD. Reports a hx of EF of 20% from echo from 2011. Started on Entresto 03/14. EP consulted. Pt decided to wait on AICD and attempt max medical management for 3 months. Pt declined LifeVest at this time. Will follow with Berenice. Cardiomyopathy: Non-ischemic. Continue afterload reduction and beta jessee. Cath negative for significant ischemic disease. Bronchitis: Start po ceftin in light of the decompensated CHF. Continues to have some cough when supine, but reports it is improved. Diarrhea: Improved, but will continue to monitor. Continue Florastor. Elevated Bili: Likely passive liver congestion from CHF. Continue to monitor. Atrial fibrillation: Rate well controlled. Sounds like it is chronic and was known to be present in 2012. On Eliquis. Cath revealed no significant blockages. Continue beta jessee. HTN: Continue metoprolol. On Entresto. Polycythemia: May be secondary to chronic chf. Hypokalemia: Replaced orally. DVT proph: On Eliquis. PUD proph: H2 antagonist.
[2019-03-16] MEDS ORDERED: Promethazine HCl 12.5 MG in Sodium Chloride 0.9% 50 ML IVPB PRN (10:01)
[2019-03-16] MEDS ORDERED: Carvedilol 3.125 MG TAB PO SCH (17:15)
[2019-03-16] MEDS: Atorvastatin Calcium 40 MG TAB PO SCH (21:24)
[2019-03-17 04:40] LABS: BUN (Urea Nitrogen) 31 mg/dL (8.4-25.7); Calc. Creatinine Clearance 64 mL/min (70-130); Estimated GFR-MDRD 46; Glucose 104 mg/dL (80-115)
[2019-03-17 04:49] LABS: Anion Gap 15 mmol/L (10-20); Carbon Dioxide 38 mmol/L (23-31); Chloride 88 mmol/L (98-107); Sodium 137 mmol/L (136-145)
[2019-03-17] MEDS ORDERED: Digoxin 0.5 MG/2 ML AMP SLOW IVP SCH ×2 (08:45→11:00)
[2019-03-17] MEDS: Famotidine 20 MG TAB PO SCH ×2 (09:12→21:11)
[2019-03-17] MEDS: Cefuroxime Axetil 250 MG TAB PO SCH ×2 (09:12→21:12)
[2019-03-17] MEDS: Saccharomyces boulardii 250 MG CAP PO SCH ×2 (09:12→21:11)
[2019-03-17] MEDS: Aspirin Chewable 81 MG TAB PO SCH (09:13)
[2019-03-17] MEDS: Apixaban 5 MG TAB PO SCH (09:13)
[2019-03-17] MEDS: Spironolactone 25 MG TAB PO SCH (09:30)
[2019-03-17] MEDS: Carvedilol 3.125 MG TAB PO SCH ×2 (09:30→16:26)
[2019-03-17] MEDS: Digoxin 0.125 MG TAB PO SCH (09:31)
--- NOTE | 2019-03-17 10:56 | PDOC.HOSPP ---
- Subjective Subjective: Pt reports that he is feeling better today. Denies nausea this morning. He thinks the pepcid was the cause of this and since discontinuation states he is better. He reports some dizziness today but states that it is improved. - Objective Vital Signs & Weight: Vital Signs (12 hours) Temp Pulse Resp BP BP Pulse Ox 03/17/19 09:31 103 H 03/17/19 09:15 106 H 03/17/19 08:33 94 L 03/17/19 08:22 97.6 F 107 H 18 108/63 94 L 03/17/19 04:30 100/52 L 03/17/19 04:23 97.6 F 84 16 96 03/17/19 00:35 98.0 F 88 18 90/40 L 96 Weight Weight 202 lb I&O: 03/16/19 03/17/19 03/18/19 06:59 06:59 06:59 Intake Total 1630 930 Output Total 2180 1425 Balance -550 -495 Result Diagrams: 03/15/19 10:27 03/17/19 03:43 Hospitalist ROS - Medication Medications: Active Medications Generic Name Dose Route Start Last Admin Trade Name Freq PRN Reason Stop Dose Admin Apixaban 5 mg 03/15/19 09:00 03/17/19 09:13 Eliquis PO 5 mg BID AISHA Administration Aspirin 81 mg 03/12/19 09:00 03/17/19 09:13 Aspirin Chewable PO 81 mg DAILY AISHA Administration Atorvastatin Calcium 40 mg 03/15/19 21:00 03/16/19 21:24 Lipitor PO 40 mg HS AISHA Administration Carvedilol 3.125 mg 03/17/19 08:00 03/17/19 09:30 Coreg PO 3.125 mg BID-WM AISHA Administration Cefuroxime Axetil 250 mg 03/12/19 21:00 03/17/19 09:12 Ceftin PO 250 mg Q12HR AISHA Administration Digoxin 0.125 mg 03/17/19 09:00 03/17/19 09:31 Lanoxin PO 03/18/19 11:00 0.125 mg QAM AISHA Administration Famotidine 20 mg 03/12/19 21:00 03/17/19 09:12 Pepcid PO 20 mg BID AISHA Administration Promethazine HCl 12.5 mg/ 50.5 mls @ 202 mls/hr 03/16/19 10:01 03/16/19 10:45 Sodium Chloride IVPB 50.5 mls Q6H PRN Administration Nausea/Vomiting Ondansetron HCl 4 mg 03/16/19 08:51 03/16/19 09:03 Zofran IVP 4 mg Q6H PRN Administration Nausea/Vomiting Saccharomyces Estefanydii 250 mg 03/12/19 21:00 03/17/19 09:12 Florastor PO 250 mg BID AISHA Administration Sacubitril/Valsartan 1 tab 03/14/19 21:00 03/16/19 21:25 Entresto 24 Mg-26 Mg Tablet PO Not Given BID AISHA Sodium Chloride 10 ml 03/11/19 21:00 03/17/19 09:32 Flush - Normal Saline IVF 10 ml Q12HR AISHA Administration Sodium Chloride 10 ml 03/11/19 18:16 03/13/19 06:02 Flush - Normal Saline IVF 10 ml PRN PRN Administration Saline Flush Spironolactone 50 mg 03/16/19 08:00 03/17/19 09:30 Aldactone PO 50 mg QAM-WM AISHA Administration - Exam General Appearance: NAD, awake alert Heart: no murmur, no gallops, irregular Respiratory: CTAB, no wheezes, no rales, no ronchi, normal chest expansion, no tachypnea Gastrointestinal: soft, non-tender, non-distended Extremities: no edema Hosp A/P (1) Cardiac volume overload Code(s): E87.79 - OTHER FLUID OVERLOAD Status: Acute (2) Acute on chronic systolic and diastolic heart failure, NYHA class 3 Code(s): I50.43 - ACUTE ON CHRONIC COMBINED SYSTOLIC AND DIASTOLIC HRT FAIL Status: Acute (3) Cardiomyopathy Code(s): I42.9 - CARDIOMYOPATHY, UNSPECIFIED Status: Chronic (4) Bronchitis Code(s): J40 - BRONCHITIS, NOT SPECIFIED ACUTE OR CHRONIC Status: Acute (5) Diarrhea Code(s): R19.7 - DIARRHEA, UNSPECIFIED Status: Acute (6) Obesity (BMI 30.0-34.9) Code(s): E66.9 - OBESITY, UNSPECIFIED Status: Chronic (7) Elevated bilirubin Code(s): R17 - UNSPECIFIED JAUNDICE Status: Acute (8) Atrial fibrillation Code(s): I48.91 - UNSPECIFIED ATRIAL FIBRILLATION Status: Chronic (9) HTN (hypertension) Code(s): I10 - ESSENTIAL (PRIMARY) HYPERTENSION Status: Chronic (10) Polycythemia Code(s): D75.1 - SECONDARY POLYCYTHEMIA Status: Acute (11) Hypokalemia Code(s): E87.6 - HYPOKALEMIA Status: Acute - Plan CHF: On spironolactone and Entresto. Discontinued Lasix today due to elevated creatinine. Will check creatinine again tomorrow morning. Reports a hx of EF of 20% from echo from 2011. EP consulted. Pt decided to wait on AICD and attempt max medical management for 3 months. Pt declined LifeVest at this time. Will follow with Berenice. Hypotension: Improved today after receiving IVF yesterday. Will continue to monitor today. Cardiomyopathy: Non-ischemic. Continue afterload reduction and beta jessee. Cath negative for significant ischemic disease. Bronchitis: Start po ceftin in light of the decompensated CHF. Continues to have some cough when supine, but stable. Diarrhea: Resolved. Continue Florastor. Elevated Bili: Likely passive liver congestion from CHF. Continue to monitor. Atrial fibrillation: Rate well controlled. Sounds like it is chronic and was known to be present in 2012. On Eliquis. Cath revealed no significant blockages. Continue beta jessee. HTN: Continue metoprolol, Entresto, and Spironolactone. Polycythemia: May be secondary to chronic chf. Hypokalemia: Replaced orally. DVT proph: On Eliquis. PUD proph: H2 antagonist. Will have patient walk with PT today. Plan to discharge tomorrow if creatinine stable.
[2019-03-17] MEDS ORDERED: Digoxin 0.25 MG TAB PO SCH (13:00)
--- NOTE | 2019-03-17 16:48 | PRG ---
DATE OF SERVICE: 03/17/2019 SUBJECTIVE: Mr. Cleveland continues to improve from the CHF standpoint. His infectious issues also have resolved. On the other hand, he developed long nonsustained ventricular tachyarrhythmia run. He was mildly symptomatic in this regard. He does not pass out. No stroke-like symptoms. No neurological deficits. No fever, chills, or cough. Rest of 12-point review of system otherwise unremarkable. OBJECTIVE DATA: VITAL SIGNS: Blood pressure is 155/99, heart rate 71, respirations 16, and the patient is afebrile. GENERAL: Alert and oriented man, in no apparent distress. NECK: Supple. Jugular veins not distended. CHEST: Coarse without crackles. HEART: Sounds are regular to rate and rhythm. No murmur or gallop. ABDOMEN: Benign. Bowel sounds positive. EXTREMITIES: Lower extremities without edema, clubbing, or cyanosis. Pulses are adequate. NEUROLOGIC: The patient is nonfocal. MUSCULOSKELETAL: Without joint swelling or deformities. SKIN: Without rash. DATABASE: Telemetry strips reviewed, revealing chronic atrial fibrillation with an episode of ventricular tachycardia with rapid rates noted, lasting about 20 seconds. The cycle lengths were up to 320 milliseconds. LABORATORY DATA: White blood cell count is 5.3, hemoglobin 17.5, and platelet count is 158 on the 16th. Sodium 139, potassium 4, BUN is 31, creatinine 1.55, mildly worsened from before. MEDICATIONS: Med list reveals Eliquis on board. ASSESSMENT AND PLAN: Mr. Cleveland is a pleasant 63-year-old man with prior history of congestive heart failure and nonischemic cardiomyopathy. He reports severely reduced left ventricular ejection fraction in 2011. Now, he is returning with continued severely reduced left ventricular ejection fraction. He also has significant ventricular ectopy nor 20 seconds. He has chronic persisting atrial fibrillation. Again, we discussed the risks of ventricular arrhythmias, hence his long ventricular arrhythmias and evidence of cardiomyopathy in the past as well as continued severely reduced left ventricular ejection fraction despite of adequate medical therapy, it would be reasonable to proceed with implantable cardiac defibrillator implant. After discussing risk and reviewing the ventricular tachycardia findings, he is more agreeable now. We will plan to proceed with implantable cardiac defibrillator implant tomorrow and the chronic atrial fibrillation, likely single-chamber device will be suffice. Risks and benefits of procedure were discussed. He understands and willing to proceed. We discussed risks of infection, bleeding, pneumothorax, tamponade, device malfunctions, and recalls. We will keep him without food. Thank you again for allowing me to participate in the care of this patient. Job ID: [id number] MARIO
[2019-03-17] MEDS: Atorvastatin Calcium 40 MG TAB PO SCH (21:12)
[2019-03-18 05:27] LABS: Anion Gap 18 mmol/L (10-20); BUN (Urea Nitrogen) 32 mg/dL (8.4-25.7); Calc. Creatinine Clearance 87 mL/min (70-130); Calcium 9.2 mg/dL (7.8-10.44); Carbon Dioxide 31 mmol/L (23-31); Chloride 90 mmol/L (98-107); Estimated GFR-MDRD 65; Glucose 96 mg/dL (80-115); Potassium 5.7 mmol/L (3.5-5.1); Sodium 133 mmol/L (136-145)
[2019-03-18 05:29] LABS: #Basophils 0.1 thou/uL (0.0-0.2); #Eosinphils 0.1 thou/uL (0.0-0.7); #Neutrophils 4.3 thou/uL (1.40-6.50); %Basophils 1.2 % (0.0-1.0); %Eosinophils 1.7 % (0.0-10.0); %Lymphocytes 26.7 % (21.0-51.0); %Monocytes 13.7 % (0.0-10.0); %Neutrophils 56.6 % (42.0-75.0); Hemoglobin 19.1 g/dL (14.0-18.0); Mean Corpuscular HGB CONC 32.1 g/dL (32.0-36.0); Mean Corpuscular Hemoglobin 30.8 pg (27.0-31.0); Mean Platelet Volume 9.2 fL (7.4-10.4); Platelet Count 184 thou/uL (130-400); RBC Distribution Width 13.8 % (11.5-14.5); White Blood Cell (WBC) Count 7.6 thou/uL (4.8-10.8)
[2019-03-18] MEDS: Carvedilol 3.125 MG TAB PO SCH ×2 (05:31→17:20)
[2019-03-18] MEDS: Ondansetron PF 4 MG/2 ML Vial IVP PRN (06:07)
[2019-03-18] MEDS ORDERED: Sodium Chloride 0.9% 250 ML IV SCH (08:45)
[2019-03-18] MEDS ORDERED: Lidocaine 1% (PF) 30 ML VIAL ONE (08:54)
[2019-03-18] MEDS ORDERED: Midazolam HCl 2 mg/2 ml Vial ONE (09:43)
[2019-03-18] MEDS ORDERED: Fentanyl 100 MCG/2 ML VIAL ONE (09:44)
[2019-03-18] MEDS ORDERED: Iopamidol 370 76% 50 ML VIAL FS ONE (11:21)
--- NOTE | 2019-03-18 11:41 | RAD ---
XR Chest 1 View Portable History: Post cardiac device placement Comparison: Radiograph March 11, 2019 Findings: New single-lead defibrillator is in place with lead collecting over the right ventricle. He art size is enlarged. Pulmonary arteries are dilated. Low-grade pulmonary venous congestion. No pneumothorax. Impression: Uncomplicated placement single-lead cardiac defibrillator.
[2019-03-18] MEDS: Saccharomyces boulardii 250 MG CAP PO SCH ×2 (12:05→21:08)
[2019-03-18] MEDS: Spironolactone 25 MG TAB PO SCH (12:05)
[2019-03-18] MEDS: Digoxin 0.125 MG TAB PO SCH (12:06)
[2019-03-18] MEDS: Famotidine 20 MG TAB PO SCH ×2 (12:06→21:07)
[2019-03-18] MEDS: Aspirin Chewable 81 MG TAB PO SCH (12:07)
[2019-03-18] MEDS: Cephalexin 250 MG CAP PO SCH ×3 (12:07→22:59)
[2019-03-18] MEDS: ceFAZolin 1 GM/D5W 1 GM in Premix Bag 1 BAG IVPB SCH ×2 (14:13→21:09)
--- NOTE | 2019-03-18 15:49 | PDOC.HOSPP ---
- Subjective Subjective: Tolerated the ICD placement well. No other complaints other than mild lightheadedness from time to time, but manageable. He thinks it has been related to eating orange sherbert. - Objective Vital Signs & Weight: Vital Signs (12 hours) Temp Pulse Pulse Pulse Resp BP BP 03/18/19 15:45 97.5 F L 91 18 03/18/19 15:35 91 87 108/71 95/52 L 03/18/19 12:06 76 03/18/19 10:45 97.2 F L 73 17 03/18/19 08:00 97.6 F 76 17 03/18/19 04:00 97.9 F 79 16 BP BP Pulse Ox Pulse Ox Pulse Ox 03/18/19 15:45 108/71 95 03/18/19 15:35 95 94 L 03/18/19 12:06 03/18/19 10:45 127/80 95 03/18/19 08:00 93/61 96 03/18/19 04:00 109/62 92 L Weight Weight 200 lb 11.2 oz I&O: 03/17/19 03/18/19 03/19/19 06:59 06:59 06:59 Intake Total 930 480 Output Total 1421 8385 Balance -495 -1195 Result Diagrams: 03/18/19 04:31 03/18/19 04:31 Additional Labs: Accuchecks 03/17/19 20:47 POC Glucose 105 Hospitalist ROS - Medication Medications: Active Medications Generic Name Dose Route Start Last Admin Trade Name Freq PRN Reason Stop Dose Admin Apixaban 5 mg 03/15/19 09:00 03/17/19 09:13 Eliquis PO 5 mg BID AISHA Administration Aspirin 81 mg 03/12/19 09:00 03/18/19 12:07 Aspirin Chewable PO 81 mg DAILY AISHA Administration Atorvastatin Calcium 40 mg 03/15/19 21:00 03/17/19 21:12 Lipitor PO 40 mg HS AISHA Administration Carvedilol 3.125 mg 03/17/19 08:00 03/18/19 05:31 Coreg PO 3.125 mg BID-WM AISHA Administration Cephalexin 500 mg 03/18/19 12:00 03/18/19 12:07 Keflex PO 500 mg Q6HR AISHA Administration Famotidine 20 mg 03/12/19 21:00 03/18/19 12:06 Pepcid PO 20 mg BID AISHA Administration Promethazine HCl 12.5 mg/ 50.5 mls @ 202 mls/hr 03/16/19 10:01 03/16/19 10:45 Sodium Chloride IVPB 50.5 mls Q6H PRN Administration Nausea/Vomiting Cefazolin Sodium/Dextrose 1 gm 50 mls @ 100 mls/hr 03/18/19 14:00 03/18/19 14 :13 / Device IVPB 50 mls Q8HR AISHA Administration Ondansetron HCl 4 mg 03/16/19 08:51 03/18/19 06:07 Zofran IVP 4 mg Q6H PRN Administration Nausea/Vomiting Saccharomyces Boulardii 250 mg 03/12/19 21:00 03/18/19 12:05 Florastor PO 250 mg BID AISHA Administration Sacubitril/Valsartan 1 tab 03/14/19 21:00 03/18/19 12:05 Entresto 24 Mg-26 Mg Tablet PO 1 tab BID AISHA Administration Sodium Chloride 10 ml 03/11/19 21:00 03/18/19 12:07 Flush - Normal Saline IVF 10 ml Q12HR AISHA Administration Sodium Chloride 10 ml 03/11/19 18:16 03/13/19 06:02 Flush - Normal Saline IVF 10 ml PRN PRN Administration Saline Flush Spironolactone 50 mg 03/16/19 08:00 03/18/19 12:05 Aldactone PO Not Given QA- AISHA - Exam General Appearance: NAD, awake alert Heart: RRR, no murmur, no gallops, no rubs, normal peripheral pulses Respiratory: CTAB, no wheezes, no rales, no ronchi, normal chest expansion, no tachypnea, normal percussion Gastrointestinal: soft, non-tender, non-distended, normal bowel sounds, no palpable masses, no hepatomegaly, no splenomegaly, no bruit Skin: normal turgor, no lesions, no rashes Musculoskeletal: normal tone, normal strength, no muscle wasting Psychiatric: normal affect, normal behavior, A&O x 3 Hosp A/P (1) Cardiac volume overload Code(s): E87.79 - OTHER FLUID OVERLOAD Status: Acute (2) Acute on chronic systolic and diastolic heart failure, NYHA class 3 Code(s): I50.43 - ACUTE ON CHRONIC COMBINED SYSTOLIC AND DIASTOLIC HRT FAIL Status: Acute (3) Cardiomyopathy Code(s): I42.9 - CARDIOMYOPATHY, UNSPECIFIED Status: Chronic (4) Bronchitis Code(s): J40 - BRONCHITIS, NOT SPECIFIED ACUTE OR CHRONIC Status: Acute (5) Diarrhea Code(s): R19.7 - DIARRHEA, UNSPECIFIED Status: Acute (6) Obesity (BMI 30.0-34.9) Code(s): E66.9 - OBESITY, UNSPECIFIED Status: Chronic (7) Elevated bilirubin Code(s): R17 - UNSPECIFIED JAUNDICE Status: Acute (8) Atrial fibrillation Code(s): I48.91 - UNSPECIFIED ATRIAL FIBRILLATION Status: Chronic (9) HTN (hypertension) Code(s): I10 - ESSENTIAL (PRIMARY) HYPERTENSION Status: Chronic (10) Polycythemia Code(s): D75.1 - SECONDARY POLYCYTHEMIA Status: Acute (11) Hypokalemia Code(s): E87.6 - HYPOKALEMIA Status: Acute - Plan CHF: On spironolactone and Entresto. Lasix was held due to hypotension and pre-renal azotemia. Hyperkalemia this morning with unopposed aldactone. Anticipate he will need lower dose of both at discharge (40,25) Will check creatinine again tomorrow morning. Lost 40 pounds of fluid this admission. Hypotension: Improved today after receiving IVF yesterday. Will continue to monitor today. Cardiomyopathy: Non-ischemic. EF 10-15% Severe MR. Continue afterload reduction and beta jessee. Cath negative for significant ischemic disease. Initially declined ICD, but ultimately agreed and that was placed today. Bronchitis: Stopped Ceftin. Started on Keflex for ICD placement. Still has a little bit of a productive cough with discolored sputum. May be sinusitis. Diarrhea: Resolved. Continue Florastor. Elevated Bili: Likely passive liver congestion from CHF. Atrial fibrillation: Rate well controlled. Sounds like it is chronic and was known to be present in 2012. On Eliquis. Cath revealed no significant blockages. Continue beta jessee. HTN: Continue coreg, Entresto, and Spironolactone. Polycythemia: May be secondary to chronic chf. Hypokalemia: Replaced orally. DVT proph: On Eliquis. PUD proph: H2 antagonist. Anticipate discharge in am if does ok on the monitor overnight after ICD placed today.
[2019-03-18] MEDS: Atorvastatin Calcium 40 MG TAB PO SCH (21:08)
[2019-03-19] MEDS: Cephalexin 250 MG CAP PO SCH ×4 (05:06→23:29)
[2019-03-19] MEDS: ceFAZolin 1 GM/D5W 1 GM in Premix Bag 1 BAG IVPB SCH (05:06)
[2019-03-19 08:07] LABS: Anion Gap 16 mmol/L (10-20); BUN (Urea Nitrogen) 30 mg/dL (8.4-25.7); Calc. Creatinine Clearance 89 mL/min (70-130); Calcium 9.3 mg/dL (7.8-10.44); Carbon Dioxide 28 mmol/L (23-31); Chloride 95 mmol/L (98-107); Estimated GFR-MDRD 67; Glucose 120 mg/dL (80-115); Potassium 4.7 mmol/L (3.5-5.1); Sodium 134 mmol/L (136-145)
[2019-03-19] MEDS: Carvedilol 3.125 MG TAB PO SCH ×2 (08:19→17:13)
[2019-03-19] MEDS: Saccharomyces boulardii 250 MG CAP PO SCH ×2 (08:20→21:00)
[2019-03-19] MEDS: Famotidine 20 MG TAB PO SCH ×2 (08:20→21:00)
[2019-03-19] MEDS: Aspirin Chewable 81 MG TAB PO SCH (08:20)
--- NOTE | 2019-03-19 13:00 | PDOC.HOSPP ---
- Subjective Encounter Date: 03/19/19 Encounter Time: 11:30 Subjective: The patient states this morning he felt very nauseous and vomited four times. His blood pressure afterwards was 80 systolic while sitting up. The patient feels he is getting too much medication and they are trying too hard to get to his normal weight, but he states his body can't tolerate it and would like to back off. The patient does not want any anti-emetics Denies chest pain or shortness of breath. He reports having lost 50 pounds while in the hospital, was 250 pounds when he initially came in. He follows with Dr. Ng and says he normally does better as an outpatient. Per nursing staff he received his coreg and entresto this morning, did not get aldactone or lasix - Objective Vital Signs & Weight: Vital Signs (12 hours) Temp Pulse Resp BP BP Pulse Ox 03/19/19 08:09 97.8 F 87 18 118/65 94 L 03/19/19 03:32 98.4 F 91 18 116/69 92 L Weight Weight 202 lb 1.6 oz I&O: 03/18/19 03/19/19 03/20/19 06:59 06:59 06:59 Intake Total 480 250 Output Total 6005 900 Balance -1195 -650 Result Diagrams: 03/18/19 04:31 03/19/19 07:47 Hospitalist ROS - Review of Systems Constitutional: denies: fever, chills - Medication Medications: Active Medications Generic Name Dose Route Start Last Admin Trade Name Freq PRN Reason Stop Dose Admin Apixaban 5 mg 03/15/19 09:00 03/17/19 09:13 Eliquis PO 5 mg BID AISHA Administration Aspirin 81 mg 03/12/19 09:00 03/19/19 08:20 Aspirin Chewable PO 81 mg DAILY AISHA Administration Atorvastatin Calcium 40 mg 03/15/19 21:00 03/18/19 21:08 Lipitor PO 40 mg HS AISHA Administration Carvedilol 3.125 mg 03/17/19 08:00 03/19/19 08:19 Coreg PO 3.125 mg BID-WM AISHA Administration Cephalexin 500 mg 03/18/19 12:00 03/19/19 05:06 Keflex PO 500 mg Q6HR AISHA Administration Famotidine 20 mg 03/12/19 21:00 03/19/19 08:20 Pepcid PO 20 mg BID AISHA Administration Promethazine HCl 12.5 mg/ 50.5 mls @ 202 mls/hr 03/16/19 10:01 03/16/19 10:45 Sodium Chloride IVPB 50.5 mls Q6H PRN Administration Nausea/Vomiting Cefazolin Sodium/Dextrose 1 gm 50 mls @ 100 mls/hr 03/18/19 14:00 03/19/19 05 :06 / Device IVPB 50 mls Q8HR AISHA Administration Ondansetron HCl 4 mg 03/16/19 08:51 03/18/19 06:07 Zofran IVP 4 mg Q6H PRN Administration Nausea/Vomiting Saccharomyces Boulardii 250 mg 03/12/19 21:00 03/19/19 08:20 Florastor PO 250 mg BID AISHA Administration Sacubitril/Valsartan 1 tab 03/14/19 21:00 03/19/19 08:20 Entresto 24 Mg-26 Mg Tablet PO 1 tab BID AISHA Administration Sodium Chloride 10 ml 03/11/19 21:00 03/19/19 08:20 Flush - Normal Saline IVF 10 ml Q12HR AISHA Administration Sodium Chloride 10 ml 03/11/19 18:16 03/13/19 06:02 Flush - Normal Saline IVF 10 ml PRN PRN Administration Saline Flush Spironolactone 50 mg 03/16/19 08:00 03/18/19 12:05 Aldactone PO Not Given QAM- AISHA - Exam General Appearance: NAD, awake alert Eye: PERRL, anicteric sclera ENT: normocephalic atraumatic, no oropharyngeal lesions Neck: supple, symmetric, no JVD, no thyromegaly Heart: RRR, no murmur, no gallops, no rubs Respiratory: CTAB, no wheezes, no rales, no ronchi, no tachypnea Gastrointestinal: soft, non-tender, non-distended, normal bowel sounds Extremities: no cyanosis Extremities - other findings: Some ankle edema and cruz edema bilaterally, R> L , nonpitting Skin: normal turgor, no lesions, no rashes Musculoskeletal: normal tone, normal strength, no muscle wasting Hosp A/P (1) Hypotension Status: Acute (2) Hyponatremia Code(s): E87.1 - HYPO-OSMOLALITY AND HYPONATREMIA Status: Acute (3) Acute on chronic systolic and diastolic heart failure, NYHA class 3 Code(s): I50.43 - ACUTE ON CHRONIC COMBINED SYSTOLIC AND DIASTOLIC HRT FAIL Status: Acute (4) Polycythemia Code(s): D75.1 - SECONDARY POLYCYTHEMIA Status: Acute (5) HTN (hypertension) Code(s): I10 - ESSENTIAL (PRIMARY) HYPERTENSION Status: Chronic - Plan ECHO 03/12: EF 15-20%, moderately dilated LA, mildly enlarged RA, severe MR, mild AR, mild TR, mild AR, dilated IVC, LV size moderately enlarged, moderately enlarged RV cavity, mildly enlarged RA, moderately dilated LA Chest X ray 03/18: mild pulmonary venous congestion. S/p single lead ICD over RV Cardiac cath 03/14: normal with 20% stenosis LAD and RCA, 40% left circumflex This is a 63 year old male with past medical history of systolic heart failure, atrial fibrillation, hypertension who presented to the emergency room with PND, orthopnea, dyspnea, LE swelling, admitted for acute CHF exacerbation, s/p 50 pounds of diuresis. Plan: #Acute Systolic CHF with EF 15-20% with severe mitral regurgitation #Hypotension #Nausea/Vomiting #Atrial fibrillation s/p pacemaker placement - given nausea/vomiting/ hypotension will hold entresto for night. Coreg can be given but hold if systolic < 90. Chest x ray 03/18 showed mild pulmonary venous congestion. Continue to hold lasix and aldactone for now - s/p single lead defibrillator placement on 03/18. Cardiac cath 03/14 showed no significant blockages #Hyponatremia - sodium improving to 134 - continue to hold lasix #Polycythemia - Hb 19, possibly dehydration, will hold antihypertensives today Disposition: d/c when blood pressure improves GI prophylaxis: H2 jessee DVT prophylaxis: eliquis Code status: full code
[2019-03-19] MEDS: Atorvastatin Calcium 40 MG TAB PO SCH (20:59)
[2019-03-19] MEDS: Apixaban 5 MG TAB PO SCH (20:59)
[2019-03-19] MEDS: Sacubitril 24.5 MG/Valsartan 25.5 MG TABLET PO SCH (21:01)
[2019-03-20 04:51] LABS: Hemoglobin 18.2 g/dL (14.0-18.0); Mean Corpuscular HGB CONC 33.4 g/dL (32.0-36.0); Mean Corpuscular Volume 95.9 fL (78.0-98.0); Mean Platelet Volume 9.5 fL (7.4-10.4); Platelet Count 162 thou/uL (130-400); RBC Distribution Width 13.5 % (11.5-14.5); Red Blood Cell (RBC) Count 5.69 mill/uL (4.70-6.10); White Blood Cell (WBC) Count 7.6 thou/uL (4.8-10.8)
[2019-03-20 05:10] LABS: ALT (SGPT) 10 U/L (8-55); AST (SGOT) 25 U/L (5-34); Alkaline Phosphatase 128 U/L (40-110); Anion Gap 14 mmol/L (10-20); BUN (Urea Nitrogen) 28 mg/dL (8.4-25.7); Bilirubin, Total 2.3 mg/dL (0.2-1.2); Calc. Creatinine Clearance 110 mL/min (70-130); Carbon Dioxide 30 mmol/L (23-31); Chloride 95 mmol/L (98-107); Estimated GFR-MDRD 86; Globulin 3.5 g/dL (2.4-3.5); Glucose 101 mg/dL (80-115); Potassium 4.5 mmol/L (3.5-5.1); Protein, Total 6.5 g/dL (5.8-8.1); Sodium 134 mmol/L (136-145)
[2019-03-20] MEDS: Cephalexin 250 MG CAP PO SCH ×2 (06:23→11:43)
[2019-03-20] MEDS: Carvedilol 3.125 MG TAB PO SCH (08:12)
[2019-03-20] MEDS: Aspirin Chewable 81 MG TAB PO SCH (08:12)
[2019-03-20] MEDS: Apixaban 5 MG TAB PO SCH (08:12)
[2019-03-20] MEDS: Saccharomyces boulardii 250 MG CAP PO SCH (08:13)
[2019-03-20] MEDS: Famotidine 20 MG TAB PO SCH (08:13)
[2019-03-20] MEDS: Sacubitril 24.5 MG/Valsartan 25.5 MG TABLET PO SCH (08:23)
--- NOTE | 2019-03-20 13:54 | ULT ---
EXAM: Right upper quadrant ultrasound PROVIDED CLINICAL HISTORY: Nausea and vomiting COMPARISON: None FINDINGS: Visualized portions of the pancreas appear normal. Liver demonstrates no mass or intrahepatic biliary ductal dilatation. Common duct is nondilated. Gallbladder demonstrates no stones, wall thickening or pericholecystic fluid. Right kidney demonstrates no hydronephrosis or mass. IMPRESSION: Unremarkable right upper quadrant ultrasound.
[2019-03-20 16:14] VITALS: TEMP 99.7
[2019-03-20 17:45] VITALS: BP 143/87
--- NOTE | 2019-03-20 18:18 | DIS ---
DATE OF ADMISSION: 03/11/2019 DATE OF DISCHARGE: 03/20/2019 DISCHARGE DIAGNOSES: Acute on chronic systolic CHF, atrial fibrillationn s/p pacemaker placement, bronchitis, hyponatremia, polycythemia, non-sustained Vtach CONSULTATIONS: 1. Davon Ng MD with Cardiology. 2. Grady Deluca MD with Electrophysiology. PROCEDURES: 1. Cardiac catheterization on 03/14: which showed 20% stenosis in the LAD, 40% stenosis in the left circumflex and 20% stenosis in the RCA. 2. Pacemaker placement on 03/18. BRIEF HISTORY OF PRESENT ILLNESS: This is a 63-year-old male with past medical history of hypertension, atrial fibrillation, CHF, CAD, who presented to the emergency room with increasing lower extremity swelling, shortness of breath with ambulation and orthopnea. The patient's chest x-ray showed no acute disease, EKG showed atrial fibrillation and BNP was elevated at 1519. The patient was admitted for CHF exacerbation. HOSPITAL COURSE: #Acute on chronic systolic CHF: The patient was diuresed with IV Lasix in the hospital, initially with 40 mg IV b.i.d. and then increased to 80 mg IV b.i.d. The patient was switched to oral Lasix 40 mg b.i.d. on the to . The patient lost over 50 pounds while in the hospital. The patient was also started on spironolactone 25 mg and Entresto, Coreg, and digoxin. The patient did start having some episodes of hypotension while standing with blood pressures in the 80s. Spironolactone and Lasix were subsequently held. On day of discharge, the patient reported no dizziness, nausea, or vomiting; however, did have some nonspecific weakness while ambulating. His blood pressure on the day of discharge was 114/59. He was discharged on Entresto half tablet twice daily, aspirin, atorvastatin, Coreg 3.125 twice daily. He should follow up with Dr. Ng in a week and have him reassess whether furosemide and spironolactone can be restarted. Atrial fibrillation/Non-sustained Vtach: The patient did have some atrial fibrillation during his hospitalization. He was started on Eliquis 5 mg twice daily. ECHO showed an EF of 15-20%. Cardiac cath was essentially unremarkable as mentioned above. The patient underwent a single lead ICD placement on 03/18. The patient was advised by Dr. Deluca to consider prophylactic ICD device placement. The patient was hesitant and will follow up with Dr. Ng and consideration of LifeVest can be discussed with him. Bronchitis: The patient reported some productive cough with increasing phlegm. Chest x-ray on admission had shown no acute disease. Chest x-ray on the showed low-grade pulmonary venous congestion. He was diuresed and was given cefuroxime during his hospitalization from the to the , however, was switched to Keflex on the due to no improvement and anticipation of pacemaker placement. He will take keflex for 6 mor days given pacemaker placement on the . Hyponatremia: The patient had a sodium that dropped to 133. His Lasix was held and sodium went up to 134 on the day of discharge. BMP can be repeated as an outpatient. Polycythemia: The patient's hemoglobin is 19. The patient appears to be asymptomatic from this. His hemoglobin improved to 18 on the day of discharge after his blood pressure medications were reduced. The patient will need a repeat CBC as an outpatient. Nausea/vomiting/elevated ALP: The patient reported four episodes of nausea and vomiting on the , possibly was secondary to hypotension. His alkaline phosphatase level was elevated today at 128. The patient underwent a right upper quadrant ultrasound on which was unremarkable. The patient can have a repeat ALP done as an outpatient. The patient denies any nausea today and was tolerating a diet. DISCHARGE PHYSICAL EXAM: VITAL SIGNS: Temperature 99.7, heart rate 90, respiratory rate 17, O2 saturation 94% on room air, blood pressure 143/79. GENERAL: The patient is alert, awake, oriented x3. CVS: Regular rate and rhythm with no murmurs, rubs, or gallops. LUNGS: Slightly diminished breath sounds at the bases. ABDOMEN: Positive bowel sounds, soft, nontender, nondistended. EXTREMITIES: The patient has some venous stasis changes in his lower extremities. Trace edema, but it is nonpitting. PERTINENT LABORATORY DATA: CBC on 03/20 : WBC 7.6, hemoglobin 18.2, hematocrit 54.5, platelets 162. BMP on 03/20: sodium 134, chloride 95, BUN 28, total bilirubin was 2.3. LFTs; AST 25, ALT 10, alkaline phosphatase 128. Troponin I on 03/11: 0.024. BMP on 03/11: 1519.6. PERTINENT IMAGING STUDIES: Chest x-ray on 03/11: no acute disease Chest X-ray 03/18: shows single lead cardiac defibrillator placement over the right ventricle. Low grade pulmonary venous congestion. Abdominal ultrasound on 03/20: unremarkable with no biliary dilation. Echocardiogram on 03/12: shows EF 15% to 20%, moderately dilated left atrium, moderately enlarged right ventricle, severe MR, mild AR, mild TR. DISCHARGE CONDITION: Stable for discharge to home. DIET: The patient to be on a heart healthy diet with 2 L fluid restriction. DISCHARGE INSTRUCTIONS: The patient to start taking Coreg 3.125 twice daily, half tablet of Entresto, aspirin, statin. He was advised to take Keflex until the as prophylaxis due to pacemaker placement. The patient is advised to follow up with his PCP in a week. He should follow up with Dr. Ng within a week and may need implantation of an ICD at some point. The patient should have a repeat chest x- ray as an outpatient if cough is persistent. The patient should have his BMP level checked in a week. Job ID: [id number] [facility]
== END 2019-03-20 17:05 | disposition home or self-care (01) | DRG 223 ==
LOC: ERS 15:00 → 2NO 18:41
PROVIDERS: ADMIT Internal Medicine; ATTEND Internal Medicine
PROC: 4A023N7 Measurement of Cardiac Sampling and Pressure, Left Heart, Percutaneous Approach (ICD-10-PCS; 2019-03-14)
PROC: B2111ZZ Fluoroscopy of Multiple Coronary Arteries using Low Osmolar Contrast (ICD-10-PCS; 2019-03-14)
PROC: B2151ZZ Fluoroscopy of Left Heart using Low Osmolar Contrast (ICD-10-PCS; 2019-03-14)
PROC: 0JH608Z Insertion of Defibrillator Generator into Chest Subcutaneous Tissue and Fascia, Open Approach (ICD-10-PCS; principal; 2019-03-18)
PROC: 02HK3KZ Insertion of Defibrillator Lead into Right Ventricle, Percutaneous Approach (ICD-10-PCS; 2019-03-18)
DX: I11.0 Hypertensive heart disease with heart failure (principal); E87.1 Hypo-osmolality and hyponatremia; I47.2 Ventricular tachycardia; I95.9 Hypotension, unspecified; I42.8 Other cardiomyopathies; I48.91 Unspecified atrial fibrillation; D75.1 Secondary polycythemia; J40 Bronchitis, not specified as acute or chronic; R19.7 Diarrhea, unspecified; E66.9 Obesity, unspecified; E87.6 Hypokalemia; I34.0 Nonrheumatic mitral (valve) insufficiency; Z68.27 Body mass index [BMI] 27.0-27.9, adult; I25.10 Atherosclerotic heart disease of native coronary artery without angina pectoris; I50.23 Acute on chronic systolic (congestive) heart failure
CPT/HCPCS: 33240; 36005; 36415; 36416; 71045; 75820; 76705; 80048; 80053; 82565; 83880; 84484; 85014; 85018; 85025; 85027; 85049; 93005; 93306; 93458; 93798; 94760; 96374; 99152; 99153; C1769; J0690; J1160; J1644; J1650; J1940; J2001; J2250; J2405; J2550; J3010; J3490; Q9967

== ENCOUNTER 2019-05-24 14:05 | Outpatient (CLI) | payer SELFPAY ==
[2019-05-24 17:03] LABS: Hemoglobin 13.7 g/dL (14.0-18.0); Mean Corpuscular HGB CONC 34.4 g/dL (32.0-36.0); Mean Corpuscular Hemoglobin 32.5 pg (27.0-31.0); Mean Corpuscular Volume 94.4 fL (78.0-98.0); Mean Platelet Volume 8.6 fL (7.4-10.4); Platelet Count 146 thou/uL (130-400); Red Blood Cell (RBC) Count 4.22 mill/uL (4.70-6.10); White Blood Cell (WBC) Count 5.3 thou/uL (4.8-10.8)
[2019-05-24 17:04] LABS: INR-International Normal Ratio 1.6; PTT 36.7 SEC (22.9-36.1); Prothrombin Time 18.9 SEC (12.0-14.7)
[2019-05-24 17:21] LABS: Anion Gap 11 mmol/L (10-20); BUN (Urea Nitrogen) 15 mg/dL (8.4-25.7); Calc. Creatinine Clearance 0 mL/min (70-130); Calcium 9.1 mg/dL (7.8-10.44); Carbon Dioxide 27 mmol/L (23-31); Chloride 106 mmol/L (98-107); Estimated GFR-MDRD Greater than 90; Glucose 93 mg/dL (80-115); Potassium 4.2 mmol/L (3.5-5.1); Sodium 140 mmol/L (136-145)
== END 2019-05-24 14:06 | disposition home or self-care (01) ==
LOC: LABBT 14:05
PROVIDERS: ATTEND Internal Medicine Cardiovascular Disease
DX: Z01.812 Encounter for preprocedural laboratory examination (principal); I48.91 Unspecified atrial fibrillation
CPT/HCPCS: 80048; 85027; 85610; 85730

== ENCOUNTER 2019-05-25 09:32 | Day surgery (SDC) | payer SELFPAY ==
[2019-05-24 15:43] VITALS: BMI 31.9
[2019-05-25] MEDS ORDERED: PROPOFOL 0 ML ONE (10:25)
[2019-05-25] MEDS ORDERED: Ketamine 50 MG/ML (10ML VIAL) ONE (12:22)
[2019-05-25] MEDS ORDERED: Midazolam HCl 2 mg/2 ml Vial ONE (12:22)
--- NOTE | 2019-05-25 12:39 | EKG ---
Test Reason : PREOP Blood Pressure : / mmHG Vent. Rate : 092 BPM Atrial Rate : 104 BPM P-R Int : 000 ms QRS Dur : 098 ms QT Int : 392 ms P-R-T Axes : 000 -54 083 degrees QTc Int : 484 ms Atrial fibrillation Left anterior fascicular block Nonspecific T wave abnormality cannot R/O anterior MS Prolonged QT Abnormal ECG When compared with ECG of 11-MAR-2019 15:15, Nonspecific T wave abnormality no longer evident in Inferior leads Inverted T waves have replaced nonspecific T wave abnormality in Lateral leads Confirmed by DR. Francisca LANGSTON ([id number]) on 05/25/2019 12:38:35 PM Referred By: ERIC Confirmed By:DR. Francisca LANGSTON
--- NOTE | 2019-05-25 13:43 | OP ---
DATE OF PROCEDURE: 05/25/2019 PROCEDURE PERFORMED: Electrocardioversion. INDICATIONS: A 63-year-old gentleman with atrial fibrillation and cardiomyopathy. DESCRIPTION OF PROCEDURE: The patient was taken to the PACU. The patient was sedated by Anesthesiology. The patient was shocked with 200 joules of synchronized electricity. The patient was converted to normal sinus rhythm. IMPRESSION: Successful electrocardioversion. Job ID: [id number]
== END 2019-05-25 14:30 | disposition home or self-care (01) ==
LOC: CCL 09:32
PROVIDERS: ATTEND Internal Medicine Cardiovascular Disease
PROC: 5A2204Z Restoration of Cardiac Rhythm, Single (ICD-10-PCS; principal; 2019-05-25)
DX: I48.0 Paroxysmal atrial fibrillation (principal); I50.23 Acute on chronic systolic (congestive) heart failure; I42.0 Dilated cardiomyopathy; I25.10 Atherosclerotic heart disease of native coronary artery without angina pectoris; Z79.01 Long term (current) use of anticoagulants; Z79.82 Long term (current) use of aspirin; Z79.899 Other long term (current) drug therapy; Z95.810 Presence of automatic (implantable) cardiac defibrillator
CPT/HCPCS: 92960; 93005; 93010; J2250; J2704